=== PATIENT | male | born 1965 | race Caucasian/White ===

== ENCOUNTER 2017-06-14 21:00 | Emergency (ER) | payer SELFPAY | END 2017-06-15 01:04 | disposition left against medical advice (07) | LOC: E/R 21:00 | DX: Z53.21 Procedure and treatment not carried out due to patient leaving prior to being seen by health care provider (principal) ==

== ENCOUNTER 2017-06-15 07:59 | Emergency (ER) | payer SELFPAY | END 2017-06-15 12:39 | disposition left against medical advice (07) | LOC: E/R 07:59 | DX: Z53.21 Procedure and treatment not carried out due to patient leaving prior to being seen by health care provider (principal) ==

== ENCOUNTER 2017-06-15 21:43 | Emergency (ER) | payer SELFPAY ==
[2017-06-16] MEDS: ALPRAZOLAM 0.25 MG TAB PO (06:48)
== END 2017-06-16 07:07 | disposition home or self-care (01) ==
LOC: E/R 06-16 07:07
DX: F41.9 Anxiety disorder, unspecified (principal); R40.2252 Coma scale, best verbal response, oriented, at arrival to emergency department; Z87.891 Personal history of nicotine dependence
CPT/HCPCS: 99283